=== PATIENT | female | born 1940 | race Caucasian/White ===

== ENCOUNTER 2017-01-10 10:45 | Inpatient (IN) | payer OTHER, BC ==
--- NOTE | 2017-01-10 11:31 | EDPHY ---
H & P Stated Complaint: Not feeling well since she got here from lower altitude;vom x 1 this am Time Seen by Provider: 01/10/17 11:23 HPI/ROS: CHIEF COMPLAINT: Nausea, vomiting, rash HISTORY OF PRESENT ILLNESS: This patient is a 76 y/o female complaining nausea, fatigue, and a rash on her right arm onset four days ago. Onset a rash on her right upper extremity 4 days ago, associated with fatigue and malaise. The rash has gradually increased and now extends from her shoulder down to her wrist. The rash is non painful and it does not itch. Yesterday, she began feeling nauseous and vomited once this morning. Associated with loose stool, but no diarrhea. Currently, she has a moderate headache and feels fatigued. She denies fever. No chest pain, abdominal pain, urinary complaints, or other associated symptoms. REVIEW OF SYSTEMS: A 10 point review of systems was performed and is negative with the exception of the elements mentioned in the history of present illness. - Personal History Current Tetanus Diphtheria and Acellular Pertussis (TDAP): Yes - Medical/Surgical History PMH: Hypertension. Other PMH: HTN - Social History Smoking Status: Never smoked Additional Social History: Visiting from [place]. . Retired. - Physical Exam Exam: General Appearance: Alert, pleasant Eyes: Pupils equal and round, no conjunctival pallor or injection. Blepharospasm right eyelid, ongoing for 10 years. ENT, Mouth: Mucous membranes moist Neck: Normal inspection Respiratory: Lungs are clear to auscultation Cardiovascular: Regular rate and rhythm Gastrointestinal: Abdomen is soft and non-tender Neurological: Alert, oriented x3, cranial nerves II through XII intact, motor 5 /5, sensory grossly intact Skin: Multiple vesicles on an erythematous base which extend from right posterior shoulder in a linear aspect down to the volar aspect of wrist. Warm and dry. Vascular: 2+ radial pulses Extremities: Nontender, no swelling Psychiatric: Mood and affect normal Constitutional: Initial Vital Signs Temperature (C) 36.6 C 01/10/17 10:46 Heart Rate 63 01/10/17 10:46 Respiratory Rate 18 01/10/17 10:46 Blood Pressure 144/75 H 01/10/17 10:46 O2 Sat (%) 97 01/10/17 10:46 O2 Delivery Mode Room Air Allergies/Adverse Reactions: prochlorperazine [From Compazine] Allergy (Intermediate, Verified 01/10/17 10:56 ) dystonia Home Medications: Medication Instructions Recorded Calcium Carbonate [Oyster Shell 500 mg PO DAILY 01/10/17 Calcium 500 mg (*)] Glucosamine Sulfate [Glucosamine 500 mg PO DAILY 01/10/17 Sulfate 500 MG (*)] Herbals/Supplements -Info Only 1 ea PO DAILY 01/10/17 Hydrochlorothiazide [HCTZ (*)] 25 mg PO DAILY 01/10/17 Lisinopril [Zestril 40 mg (*)] 40 mg PO DAILY 01/10/17 Propranolol HCl [Inderal LA] 160 mg PO DAILY 01/10/17 Sertraline HCl [Zoloft 25mg (*)] 25 mg PO DAILY 01/10/17 Valacyclovir HCl [Valtrex] 1,000 mg PO TID #21 tab 01/10/17 amLODIPine BESYLATE [Norvasc 10 mg 10 mg PO DAILY 01/10/17 (*)] Medical Decision Making ED Course/Re-evaluation: 76 y/o female presents with shingles, fatigue and recent onset nausea and vomiting. IV established. Plan for labs including CBC, BMP. Plan to administer 4mg IV Zofran and 1L IV NS for dehydration. 12:30 The patient declined Zofran, as she is worried about a possible dystonic reaction. Laboratory studies show hyponatremia, most likely secondary to dehydration, combined with regular use of hydrochlorothiazide. In regards to the headache, this is most likely secondary to dehydration and hyponatremia. I do not suspect that she has disseminated herpes zoster or meningitis. She states she has had a prior episode of hyponatremia related to dehydration. There are no prior laboratory tests for comparison. She does not feel comfortable going home. Plan to admit for further management. 12:40 Consulted with hospitalist service. Dr. Vela accepts admission for hyponatremia. Valtrex 1000 mg orally given. Differential Diagnosis: Differential diagnosis includes though is not limited to cellulitis, abscess, disseminated herpes zoster, SIADH. - Data Points Laboratory Results: Laboratory Results 01/10/17 11:53 01/10/17 11:53 Medications Given: Acetaminophen (Tylenol) 650 mg PO Q4HRS PRN PRN Reason: Pain, Mild/Fever, Can Take PO Stop: 07/09/17 14:38 Last Admin: 01/11/17 02:27 Dose: 650 mg Sodium Chloride (Ns) 1,000 mls @ 100 mls/hr IV CONT LUCIAN Stop: 07/09/17 15:44 Last Admin: 01/11/17 02:31 Dose: 1,000 mls Valacyclovir HCl (Valtrex) 1,000 mg PO TID LUCIAN Stop: 02/09/17 21:59 Last Admin: 01/10/17 21:29 Dose: 1,000 mg Discontinued Medications Sodium Chloride (Ns) 1,000 mls @ 0 mls/hr IV EDNOW ONE; Wide Open PRN Reason: Protocol Stop: 01/10/17 11:40 Last Admin: 01/10/17 11:52 Dose: 1,000 mls Ondansetron HCl (Zofran) 4 mg IVP EDNOW ONE Stop: 01/10/17 11:40 Last Admin: 01/10/17 11:53 Dose: Not Given Potassium Chloride (Klor-Con) 40 meq PO ONCE ONE Stop: 01/10/17 15:35 Last Admin: 01/10/17 16:20 Dose: 40 meq Potassium Chloride (Klor-Con) 60 meq PO ONCE ONE Stop: 01/11/17 01:34 Last Admin: 01/11/17 02:23 Dose: 60 meq Valacyclovir HCl (Valtrex) 1,000 mg PO EDNOW ONE Stop: 01/10/17 12:45 Last Admin: 01/10/17 13:30 Dose: 1,000 mg Departure - Departure Disposition: [facility] Acute Clinical Impression: Hyponatremia Shingles Qualifiers: Herpes zoster complications: without complications Qualified Code(s): B02.9 - Zoster without complications Condition: Fair Report Scribed for: Shandra Pichardo Report Scribed by: Ariana Kwok Date of Report: 01/10/17 Time of Report: 11:35 Physician Review and Approval Statement: 01/10/17 11:35 Portions of this note were transcribed by a hospitalist medical director. I personally performed a history, physical exam, medical decision making, and confirmed accuracy of information the transcribed note.
[2017-01-10] MEDS ORDERED: ONDANSETRON 4 MG/2 ML VIAL IVP ONE (11:39)
[2017-01-10] MEDS ORDERED: NS 1,000 ML IV ONE (11:39)
[2017-01-10 12:02] LABS: PLATELET COUNT 197 10^3/uL (150-400)
[2017-01-10] MEDS ORDERED: valACYclovir 500 MG TAB PO ONE (12:44)
[2017-01-10] MEDS ORDERED: ONDANSETRON 4 MG/2 ML VIAL IVP PRN (14:39)
[2017-01-10] MEDS ORDERED: ACETAMINOPHEN 325 MG TAB PO PRN (14:39)
[2017-01-10] MEDS ORDERED: ONDANSETRON DISINTEGRATING 4 MG TAB PO PRN (14:39)
[2017-01-10] MEDS ORDERED: POTASSIUM CL 20 MEQ TAB PO ONE (15:34)
--- NOTE | 2017-01-10 16:07 | GHP ---
[f rep st] HISTORY AND PHYSICAL DATE OF ADMISSION: 01/10/2017 CHIEF COMPLAINT: Vomiting. HISTORY OF PRESENT ILLNESS: This is a 76-year-old female who is visiting from [place]. She notice d a rash a few days prior to presentation on her right arm. It does not hurt. It is also not prurit ic. It has slowly gotten worse. Over the past few days, she has been maintaining her hydration, tho ugh she has been going to altitude. She has had loose stools but no diarrhea. Today, she had an epi sode of emesis associated with a headache. Thus, she presented to the emergency department. She has never had shingles before. She is not immunosuppressed. No diabetes, no steroids. She has not had the Zostavax vaccine. She tells me that her headache has resolved after eating a little food and an ving a short nap. PAST MEDICAL/SURGICAL HISTORY: Hypertension. MEDICATIONS: Please see medication reconciliation. ALLERGIES: Prochlorperazine. SOCIAL HISTORY: She is from [place]. She is and retired. FAMILY HISTORY: Reviewed and noncontributory. REVIEW OF SYSTEMS: 10-point review of systems is conducted and is negative except per HPI. PHYSICAL EXAM: VITAL SIGNS: Blood pressure 154/81, heart rate 65, respiration rate 16, saturating 9 5% on room air. Temperature 36.6. GENERAL: The patient is a very pleasant female who is resting co mfortably, in no acute distress. HEENT: Normocephalic, atraumatic. CARDIOVASCULAR: Regular rate a nd rhythm. No murmurs, rubs, or gallops. PULMONARY: Lungs clear to auscultation bilaterally. ABDO MEN: Soft, nontender, nondistended. SKIN: A vesicular rash, erythematous base, on her right arm. : Shows no Brasher. NEUROLOGIC: Shows her to be alert and oriented x3. She is moving all extremit ies. PSYCHIATRIC: Normal mood and affect. LABS: Sodium 124, potassium 3.0, chloride 88, creatinine 0.7, glucose 125, calcium 9. Her CBC is re latively unremarkable. DATA: I reviewed her chart. IMPRESSION AND PLAN: This is a 76-year-old female who presents with a rash, hyponatremia. 1. Zoster: We will start her on Valtrex. Seems to be in about the C5 through C7 distribution. 2. Hyponatremia: She is on hydrochlorothiazide. Also probably slightly hypovolemic. Her sodium di d not come up with normal saline. I will continue it slowly and check another basic metabolic panel at 10 p.m. tonight. 3. Hypokalemia: Likely due to emesis. Will replete orally as she is now taking p.o. 4. Headache: This has resolved. 5. Code status is full. 6. Admission status is observation. /[id number]/MODL
[2017-01-10] MEDS: NS 1,000 ML IV SCH (16:22)
[2017-01-10] MEDS: valACYclovir 500 MG TAB PO SCH (21:29)
[2017-01-11] MEDS ORDERED: POTASSIUM CL 20 MEQ TAB PO ONE (01:33)
[2017-01-11] MEDS ORDERED: POTASSIUM CL 20 MEQ TAB ONE (02:13)
[2017-01-11] MEDS: NS 1,000 ML IV SCH (02:31)
[2017-01-11 04:24] LABS: PLATELET COUNT 203 10^3/uL (150-400)
[2017-01-11] MEDS: valACYclovir 500 MG TAB PO SCH ×3 (08:19→21:10)
[2017-01-11] MEDS: ENOXAPARIN 40 MG/0.4 ML SYR SC SCH (08:20)
[2017-01-11] MEDS: LISINOPRIL 40 MG TAB PO SCH (08:20)
[2017-01-11] MEDS ORDERED: PROPRANOLOL PO SCH (09:00)
[2017-01-11] MEDS ORDERED: PROPRANOLOL HCL 160 MG PO SCH (09:00)
[2017-01-11] MEDS ORDERED: LISINOPRIL 40 MG TAB PO SCH (09:00)
[2017-01-11] MEDS ORDERED: PROPRANOLOL SR 80 MG CAP PO SCH (09:00)
[2017-01-11] MEDS ORDERED: BISMUTH SUBSALICYLATE 262 MG CHEWABLE TAB PO PRN (14:34)
--- NOTE | 2017-01-11 14:38 | HOSPPROG ---
Hospitalist Progress Note Assessment/Plan: # hypoNa - multifactorial, hctz, SSRI, possibly SIADH - fluid restrict, Na tabs - check urine studies, TSH, am cortisol # hypoK - replete # zoster - valtrex # htn - norvasc, lisino; follow # status - inpatient d/t severe hypoNa Subjective: feels poorly, belching, flatus Objective: Vital Signs Temp Pulse Resp BP Pulse Ox 36.5 C 61 20 160/79 H 95 01/11/17 07:15 01/11/17 07:15 01/11/17 07:15 01/11/17 07:15 01/11/17 07:15 Laboratory Results 01/11/17 04:15 01/11/17 12:43 01/10/17 01/11/17 01/12/17 05:59 05:59 05:59 Intake Total 1100 685 Balance 1100 685 - Physical Exam Constitutional: no apparent distress, appears nourished Cardiovascular: regular rate and rhythym, no murmur, rub, or gallop Respiratory: no respiratory distress, no rales or rhonchi, clear to auscultation Gastrointestinal: normoactive bowel sounds, soft, non-tender abdomen, no palpable masses ICD10 Worksheet Patient Problems: Problems Problem Status Onset Shingles Acute Hyponatremia Acute
--- NOTE | 2017-01-11 14:49 | ASMTCMCOM ---
CM Note CM Note Notes: Spoke w/RN, anticipate pt will dc home w/support of when medically stable. CM available for any changes. Date Signed: 01/11/2017 02:48 PM Electronically Signed By:Isamar Peterson RN
--- NOTE | 2017-01-11 15:10 | PDMN ---
Medical Necessity Medical necessity: Patient meets INPT criteria per physician note and MCG Systemic or Infectious Condition GRG (severe hyponatremia/Na+ 123-125 since admission/ multifactorial: HCTZ, SSRI, poss SIADH ; initial hypokalemia resolved ; on Valtrex for herpes zoster, HTN; LOS will be > 2 midnights for fluid restriction, Na tabs, check urine studies and cortisol level.)
[2017-01-11] MEDS: SODIUM CHLORIDE 1,000 MG TAB PO SCH (17:44)
[2017-01-11] MEDS: SIMETHICONE 80 MG TAB CHEW PO SCH ×2 (17:44→21:10)
[2017-01-12] MEDS: ENOXAPARIN 40 MG/0.4 ML SYR SC SCH (08:42)
[2017-01-12] MEDS: SODIUM CHLORIDE 1,000 MG TAB PO SCH ×3 (08:43→17:59)
[2017-01-12] MEDS: LISINOPRIL 40 MG TAB PO SCH (08:44)
[2017-01-12] MEDS: valACYclovir 500 MG TAB PO SCH ×3 (08:45→22:08)
[2017-01-12] MEDS: SIMETHICONE 80 MG TAB CHEW PO SCH ×4 (08:46→22:07)
--- NOTE | 2017-01-12 09:05 | HOSPPROG ---
Hospitalist Progress Note Assessment/Plan: # hypoNa - multifactorial, hctz, SSRI, possibly SIADH - fluid restrict, Na tabs - recheck Na at noon # hypoK - repleted # zoster - valtrex # htn - norvasc, lisino; propranolol - start clonidine today Subjective: feels stronger today Objective: Vital Signs Temp Pulse Resp BP Pulse Ox 36.5 C 58 L 20 157/78 H 94 01/12/17 07:08 01/12/17 07:08 01/12/17 07:08 01/12/17 07:08 01/12/17 07:08 Laboratory Results 01/12/17 04:22 01/11/17 01/12/17 01/13/17 05:59 05:59 05:59 Intake Total 1500 Balance 1500 high risk with severe hypoNa - Physical Exam Constitutional: no apparent distress, appears nourished Cardiovascular: regular rate and rhythym, no murmur, rub, or gallop Respiratory: no respiratory distress, no rales or rhonchi, clear to auscultation Gastrointestinal: normoactive bowel sounds, soft, non-tender abdomen, no palpable masses ICD10 Worksheet Patient Problems: Problems Problem Status Onset Shingles Acute Hyponatremia Acute
[2017-01-12] MEDS: PROPRANOLOL PO SCH (10:17)
--- NOTE | 2017-01-12 14:11 | PDCONSULT ---
Patient Care Technician Instructor Note: Assessment/Plan: Hyponatremia: unlikely to be hypovolemic hyponatremia as pt did not respond to IVFs given and currently she appears euvolemic. She could have SIADH although her urine studies may have been skewed by HCTZ she was taking at home. TSH and am cortisol wnl. - Will continue salt tabs. - Will further fluid restrict to 1000ml. - Will recheck urine studies tomorrow am. - Will continue to monitor sodium q8h and adjust fluid and salt as needed. - Goal is to raise sodium by no more than 6 over a 24hr period, so no higher than 129 by tomorrow am. HTN: continue current meds, holding HCTZ in setting of above hyponatremia. Thank you for the interesting consult. Nephrology will continue to follow, please call if you have any additional questions or concerns. H & P Stated Complaint: Not feeling well since she got [place] from [place] altitude;vom x 1 this am Time Seen by Provider: 01/10/17 11:23 HPI/ROS: Ms. Burgos is a 76 yo F with h/o HTN who was admitted on 01/10/17 with complaints of nausea and rash. She was found to have shingles on R arm. She is visiting from [place], arrived on Sunday last week. She states that the rash first appeared on Sunday, got worse in the next 24 hours. She then states that she started to have nausea on Sunday, and on Sunday she vomiting once, prompting her to come to ER. Her sodium on presentation was 124 , was given NS but sodium remained 123-125. Yesterday, NS stopped and she was started on 1500ml fluid restriction and 1g salt tab TID. This am, her sodium was still 123, and at noon it was down to 120, prompting consult. Pt states that she once had hyponatremia during a hospitalization years ago when she was dehydrated and improved with fluids, sodiums have reportedly been normal before and since then. She follows a low salt diet at home. She was taking HCTZ at home for her HTN, states she has been on it since last year, had been on and off it in the past. She denies any dizziness, confusion, N/V currently. ROS: Positive per HPI, rest of 10-point ROS negative Source: Patient - Personal History Current Tetanus Diphtheria and Acellular Pertussis (TDAP): Yes - Medical/Surgical History Hx Renal Disease: Yes Other PMH: HTN - Family History Significant Family History: No pertinent family hx - Social History Smoking Status: Never smoked - Physical Exam Exam: General: alert and oriented, no acute distress Eyes; EOMI, PERRL OP: Clear, MMM Neck: supple, no thyromegaly CV: RRR, no peripheral edema, +2 dorsalis pedis pulses Resp: CTA bilat, nonlabored respirations Abd; Soft, NT/ND Neuro: CN II-XII grossly intact, no asterixis Psych: cooperative, appropriate mood and affect Skin: rash noted on R arm Constitutional: Initial Vital Signs Temperature (C) 36.6 C 01/10/17 10:46 Heart Rate 63 01/10/17 10:46 Respiratory Rate 18 01/10/17 10:46 Blood Pressure 144/75 H 01/10/17 10:46 O2 Sat (%) 97 01/10/17 10:46 O2 Delivery Mode Room Air Allergies/Adverse Reactions: prochlorperazine [From Compazine] Allergy (Intermediate, Verified 01/10/17 10:56 ) dystonia Home Medications: Medication Instructions Recorded Calcium Carbonate [Oyster Shell 500 mg PO DAILY 01/10/17 Calcium 500 mg (*)] Glucosamine Sulfate [Glucosamine 500 mg PO DAILY 01/10/17 Sulfate 500 MG (*)] Herbals/Supplements -Info Only 1 ea PO DAILY 01/10/17 Hydrochlorothiazide [HCTZ (*)] 25 mg PO DAILY 01/10/17 Lisinopril [Zestril 40 mg (*)] 40 mg PO DAILY 01/10/17 Propranolol HCl [Inderal LA] 160 mg PO DAILY 01/10/17 Sertraline HCl [Zoloft 25mg (*)] 25 mg PO DAILY 01/10/17 Valacyclovir HCl [Valtrex] 1,000 mg PO TID #21 tab 01/10/17 amLODIPine BESYLATE [Norvasc 10 mg 10 mg PO DAILY 01/10/17 (*)] Lab and Imaging 01/11/17 04:15 01/12/17 12:00 WBC 4.37 10^3/uL (3.80-9.50) 01/11/17 04:15 RBC 4.35 10^6/uL (4.18-5.33) 01/11/17 04:15 Hgb 13.2 g/dL (12.6-16.3) 01/11/17 04:15 Hct 35.6 % (38.0-47.0) L 01/11/17 04:15 MCV 81.8 fL (81.5-99.8) 01/11/17 04:15 MCH 30.3 pg (27.9-34.1) 01/11/17 04:15 MCHC 37.1 g/dL (32.4-36.7) H 01/11/17 04:15 RDW 12.1 % (11.5-15.2) 01/11/17 04:15 Plt Count 203 10^3/uL (150-400) 01/11/17 04:15 MPV 9.4 fL (8.7-11.7) 01/11/17 04:15 Neut % (Auto) 67.7 % (39.3-74.2) 01/11/17 04:15 Lymph % (Auto) 16.0 % (15.0-45.0) 01/11/17 04:15 Lamar % (Auto) 14.0 % (4.5-13.0) H 01/11/17 04:15 Eos % (Auto) 1.4 % (0.6-7.6) 01/11/17 04:15 Baso % (Auto) 0.7 % (0.3-1.7) 01/11/17 04:15 Nucleat RBC Rel Count 0.0 % (0.0-0.2) 01/11/17 04:15 Absolute Neuts (auto) 2.96 10^3/uL (1.70-6.50) 01/11/17 04:15 Absolute Lymphs (auto) 0.70 10^3/uL (1.00-3.00) L 01/11/17 04:15 Absolute Monos (auto) 0.61 10^3/uL (0.30-0.80) 01/11/17 04:15 Absolute Eos (auto) 0.06 10^3/uL (0.03-0.40) 01/11/17 04:15 Absolute Basos (auto) 0.03 10^3/uL (0.02-0.10) 01/11/17 04:15 Absolute Nucleated RBC 0.00 10^3/uL (0-0.01) 01/11/17 04:15 Immature Gran % 0.2 % (0.0-1.1) 01/11/17 04:15 Immature Gran # 0.01 10^3/uL (0.00-0.10) 01/11/17 04:15 Sodium 120 mEq/L (134-144) L 01/12/17 12:00 Potassium 3.5 mEq/L (3.5-5.2) 01/12/17 04:22 Chloride 88 mEq/L (97-110) L 01/12/17 04:22 Carbon Dioxide 23 mEq/l (22-31) 01/12/17 04:22 Anion Gap 12 mEq/L (8-16) 01/12/17 04:22 BUN 11 mg/dL (7-23) 01/12/17 04:22 Creatinine 0.8 mg/dL (0.6-1.0) 01/12/17 04:22 Estimated GFR > 60 01/12/17 04:22 Glucose 89 mg/dL (70-100) 01/12/17 04:22 Calcium 8.8 mg/dL (8.5-10.4) 01/12/17 04:22 TSH 1.800 uIU/mL (0.465-4.680) 01/12/17 04:22 Cortisol AM Sample 19.4 ug/dL (4.5-22.7) 01/12/17 04:22 Urine Osmolality 417 mosmo/kg (300-900) 01/11/17 14:20 Ur Random Sodium 132 mEq/L (30-90) H 01/11/17 14:20
[2017-01-13] MEDS: SODIUM CHLORIDE 1,000 MG TAB PO SCH ×3 (08:14→18:39)
[2017-01-13] MEDS: SIMETHICONE 80 MG TAB CHEW PO SCH ×5 (08:14→22:04)
[2017-01-13] MEDS: valACYclovir 500 MG TAB PO SCH ×3 (08:15→22:04)
[2017-01-13] MEDS: ENOXAPARIN 40 MG/0.4 ML SYR SC SCH (08:15)
[2017-01-13] MEDS: LISINOPRIL 40 MG TAB PO SCH ×2 (08:15→08:22)
[2017-01-13] MEDS: PROPRANOLOL PO SCH (08:22)
--- NOTE | 2017-01-13 09:26 | HOSPPROG ---
Hospitalist Progress Note Assessment/Plan: * Hyponatremia -improving slowly on salt tabs + fluid restrict -DC HCTZ -holding Zoloft * Herpes Zoster -Valtrex * ARF -creatinine up to 1.3 -await nephrology input * HTN -Norvasc, lisinopril, propranolol -clonidine added Subjective: NO complaints Objective: Vital Signs Temp Pulse Resp BP Pulse Ox 36.6 C 57 L 20 117/60 96 01/13/17 08:00 01/13/17 08:00 01/13/17 08:00 01/13/17 08:00 01/13/17 08:00 Laboratory Results 01/13/17 04:12 01/12/17 01/13/17 01/14/17 05:59 05:59 05:59 Intake Total 1500 1000 Balance 1500 1000 - Physical Exam Constitutional: no apparent distress, appears nourished, not in pain Cardiovascular: regular rate and rhythym, no murmur, rub, or gallop Respiratory: no respiratory distress, no rales or rhonchi, clear to auscultation Gastrointestinal: normoactive bowel sounds, soft, non-tender abdomen, no palpable masses Skin: rash (vesicular lesions dried) Neurologic: AAOx3, sensation intact bilaterally Psychiatric: interacting appropriately, not anxious, not encephalopathic, thought process linear ICD10 Worksheet Patient Problems: Problems Problem Status Onset Hyponatremia Acute Shingles Acute
--- NOTE | 2017-01-13 10:18 | ASMTCMCOM ---
CM Note CM Note Notes: Spoke w/MD, anticipate pt will dc w/support of family when medically stable. CM available for any changes. Date Signed: 01/13/2017 10:17 AM Electronically Signed By:Isamar Peterson RN
--- NOTE | 2017-01-13 16:05 | SOAPPROG ---
SOAP Progress Note Assessment/Plan: Assessment: 1. Hyponatremia: -Patient has improved with fluid restriction, slat tabs, and cessation of HCTZ -Initially urine studies were supportive of this approach, although low yield with recent use of HCTZ causing obligate urinary sodium losses -Today urine studies show Na < 5, thus renal conservation which is more typical of hypovolemia -Also she has had a rise in BUN/Cr -Will give back 1L NS and lift fluid restriction to 1500ml, she should continue to eat ad amanda -TSH and am cortisol wnl. -Hold salt tabs. -Will recheck urine studies tomorrow am. -Will continue to monitor sodium q8h and adjust as needed. -Goal is to raise sodium by no more than 6 over a 24hr period 2. ERIKA - -Labs supportive of a pre-renal ERIKA -Giving back 1L NS and allowing PO intake -Hold Lisinopril if further decline in function despite IVF 3. HTN: -Continue current meds, holding HCTZ in setting of above hyponatremia. -Hold Lisinopril if creat climbs further despite IVF, BP well controlled but consider alternate if needed Plan: 01/13/17 16:02 01/13/17 16:07 Subjective: Patient denies N/V. She feels dry and thirsty. Has a good appetite. Objective: Vital Signs Temp Pulse Resp BP Pulse Ox 36.7 C 65 18 117/53 L 94 01/13/17 15:58 01/13/17 15:58 01/13/17 15:58 01/13/17 15:58 01/13/17 15:58 Laboratory Results 01/13/17 13:34 01/12/17 01/13/17 01/14/17 05:59 05:59 05:59 Intake Total 1500 1000 Balance 1500 1000 Physical Exam - Physical Exam General Appearance: WD/WN, no apparent distress Respiratory: lungs clear Cardiac/Chest: regular rate, rhythm Abdomen: non-tender, soft Skin: Zoster-like rash (Shingles on R arm) Extremities: No swelling ICD10 Worksheet Patient Problems: Problems Problem Status Onset Hyponatremia Acute Shingles Acute
[2017-01-13] MEDS ORDERED: NS 1,000 ML IV SCH (16:15)
[2017-01-13 22:56] VITALS: RESP 16
[2017-01-14 07:48] VITALS: BP 126/67; PULSE 62; TEMP 97.7; O2SAT 94
[2017-01-14] MEDS: valACYclovir 500 MG TAB PO SCH (08:48)
[2017-01-14] MEDS: LISINOPRIL 40 MG TAB PO SCH (08:49)
[2017-01-14] MEDS: ENOXAPARIN 40 MG/0.4 ML SYR SC SCH (08:49)
[2017-01-14] MEDS: PROPRANOLOL PO SCH (08:50)
[2017-01-14] MEDS: SODIUM CHLORIDE 1,000 MG TAB PO SCH (08:55)
[2017-01-14] MEDS: SIMETHICONE 80 MG TAB CHEW PO SCH ×2 (09:48→13:19)
--- NOTE | 2017-01-14 09:53 | SOAPPROG ---
SOAP Progress Note Assessment/Plan: Assessment: 1. Hyponatremia: -Patient hasimproved with fluid restriction, salt tabs, and cessation of HCTZ -Initially urine studies were supportive of this approach, although low yield with recent use of HCTZ causing obligate urinary sodium losses -Repeat urine studies show Na < 5, thus renal conservation which is more typical of hypovolemia -Also she had a rise in BUN/Cr -Yesterday gave back 1L NS and lifted fluid restriction to 1500ml, -Na and BUN/Cr improved today -She should continue to eat ad amanda -TSH and am cortisol wnl. -Holding salt tabs. -Rechecking urine studies tomorrow -Na normal today, can check labs daily, ok to discharge when otherwise medically stable as long as she can get lab f/u within a few days 2. ERIKA - -Labs supportive of a pre-renal ERIKA -Giave back 1L NS and allowing PO intake 3. HTN: -Continue current meds, holding HCTZ in setting of above hyponatremia. -Would hold HCTZ into outpt setting as well Plan: 01/14/17 09:50 Subjective: Feels well. Ate full breafast. No complaints. Objective: Vital Signs Temp Pulse Resp BP Pulse Ox 36.5 C 62 16 126/67 H 94 01/14/17 07:45 01/14/17 07:45 01/14/17 07:45 01/14/17 07:45 01/14/17 07:45 Laboratory Results 01/14/17 04:15 01/13/17 01/14/17 01/15/17 05:59 05:59 05:59 Intake Total 1000 200 Output Total 200 Balance 1000 0 Physical Exam - Physical Exam General Appearance: WD/WN, no apparent distress Respiratory: lungs clear, normal breath sounds Cardiac/Chest: regular rate, rhythm Abdomen: non-tender, soft Skin: Zoster-like rash (R arm) Extremities: No swelling ICD10 Worksheet Patient Problems: Problems Problem Status Onset Hyponatremia Acute Shingles Acute
--- NOTE | 2017-01-14 14:12 | ASDISCHSUM ---
Discharge Information Plan Status:Home with No Needs Medically Cleared to Leave:01/14/2017 Discharge Date:01/14/2017 CM D/C Disposition:Home, Routine, Self-Care ADT D/C Disposition:Home, Routine, Self-Care Projected Discharge Date:01/14/2017 Transportation at D/C:Family Discharge Delay Reason: Follow-Up Date:01/14/2017 Discharge Slot: Final Diagnosis: Placement Information Patient Contact Information Contact Name:BENJAMÍN Relationship:Kenneth Address: Work Phone: City: [facility] Phone: State/Zip Code: Email: Financial Information Financial Class: Primary Plan Desc:MEDICARE INPATIENT Primary Plan Number:[id number] Secondary Plan Desc: OUT OF STATE [facility] Secondary Plan Number:[id number] Assessment Information [facility] CM Progress Note CM Note CM Note Notes: Spoke w/ISHAN, anticipate pt will dc home w/support of when medically stable. CM available for any changes. Date Signed: 01/11/2017 02:48 PM Electronically Signed By:Isamar Peterson RN [facility] CM Progress Note CM Note CM Note Notes: Pawan w/, anticipate pt will dc w/support of family when medically stable. CM available for any changes. Date Signed: 01/13/2017 10:17 AM Electronically Signed By:Isamar Peterson RN Intervention Information Intervention Type:*RACHEL-Signed Date of Service:01/11/2017 10:23 AM Patient Type:Observation Staff Member:Mercy Paez Hours: Discipline: Severity: Comment:
--- NOTE | 2017-01-14 14:12 | ASDISCHSUM ---
Discharge Information Plan Status:Home with No Needs Medically Cleared to Leave:01/14/2017 Discharge Date:01/14/2017 CM D/C Disposition:Home, Routine, Self-Care ADT D/C Disposition:Home, Routine, Self-Care Projected Discharge Date:01/14/2017 Transportation at D/C:Family Discharge Delay Reason: Follow-Up Date:01/14/2017 Discharge Slot: Final Diagnosis: Placement Information Patient Contact Information Contact Name:BENJAMÍN Relationship:Kenneth Address: Work Phone: City: [facility] Phone: State/Zip Code: Email: Financial Information Financial Class: Primary Plan Desc:MEDICARE INPATIENT Primary Plan Number:[id number] Secondary Plan Desc: OUT OF STATE [facility] Secondary Plan Number:[id number] Assessment Information [facility] CM Progress Note CM Note CM Note Notes: Spoke w/ISHAN, anticipate pt will dc home w/support of when medically stable. CM available for any changes. Date Signed: 01/11/2017 02:48 PM Electronically Signed By:Isamar Peterson RN [facility] CM Progress Note CM Note CM Note Notes: Pawan w/, anticipate pt will dc w/support of family when medically stable. CM available for any changes. Date Signed: 01/13/2017 10:17 AM Electronically Signed By:Isamar Peterson RN Intervention Information Intervention Type:*RACHEL-Signed Date of Service:01/11/2017 10:23 AM Patient Type:Observation Staff Member:Mercy Paez Hours: Discipline: Severity: Comment:
--- NOTE | 2017-01-14 14:12 | ASDISCHSUM ---
Discharge Information Plan Status:Home with No Needs Medically Cleared to Leave:01/14/2017 Discharge Date:01/14/2017 CM D/C Disposition:Home, Routine, Self-Care ADT D/C Disposition:Home, Routine, Self-Care Projected Discharge Date:01/14/2017 Transportation at D/C:Family Discharge Delay Reason: Follow-Up Date:01/14/2017 Discharge Slot: Final Diagnosis: Placement Information Patient Contact Information Contact Name:BENJAMÍN Relationship:Kenneth Address: Work Phone: City: [facility] [place] Phone: State/Zip Code: Email: Financial Information Financial Class: Primary Plan Desc:MEDICARE INPATIENT Primary Plan Number:[id number] Secondary Plan Desc: OUT OF STATE [facility] Secondary Plan Number:[id number] Assessment Information [facility] CM Progress Note CM Note CM Note Notes: Spoke w/ISHAN, anticipate pt will dc home w/support of when medically stable. CM available for any changes. Date Signed: 01/11/2017 02:48 PM Electronically Signed By:Isamar Peterson RN [facility] CM Progress Note CM Note CM Note Notes: Pawan w/, anticipate pt will dc w/support of family when medically stable. CM available for any changes. Date Signed: 01/13/2017 10:17 AM Electronically Signed By:Isamar Peterson RN Intervention Information Intervention Type:*RACHEL-Signed Date of Service:01/11/2017 10:23 AM Patient Type:Observation Staff Member:Mercy Paez Hours: Discipline: Severity: Comment:
--- NOTE | 2017-01-14 20:38 | GDS ---
[f rep st] DISCHARGE SUMMARY DISCHARGE DIAGNOSES: 1. Hyponatremia due to hydrochlorothiazide. 2. Herpes zoster. 3. Hypertension. HISTORY: The patient is a 76-year-old female visiting her son from [place]. She was about to fly home but was not feeling well, so came to the emergency room for evaluation and was found to have sig nificant hyponatremia. This is likely due to her hydrochlorothiazide. She was seen here in consulta tion with Nephrology and we very slowly corrected her sodium back up to normal. She is advised to ne bk take hydrochlorothiazide again and put it on her allergy list. We are also holding her Zoloft an d the decision can be made in the future whether or not to attempt a retrial of SSRI while closely mo nitoring sodium levels. She also has a significant outbreak of herpes zoster on her right arm. She was initiated on Valtrex. This is coming along nicely. With the discontinuation of hydrochlorothiazide, she did have some elevated blood pressures throughou t her hospitalization. A low-dose clonidine was added to her usual Norvasc, lisinopril and propranol ol. DISCHARGE MEDICATIONS: Please see computer records for full detailed list. NEW MEDICATIONS: 1. Clonidine 0.1 mg p.o. twice daily. 2. Valtrex 1000 mg p.o. three times daily for 3 more days. 3. DISCONTINUED MEDICATIONS: 1. Zoloft 25 mg p.o. daily. 2. Hydrochlorothiazide 25 mg p.o. daily. The remainder of her medications will continue as they were prior to admission. ADDITIONAL DISCHARGE INSTRUCTIONS: 1. Recheck sodium level in 1 to 2 days prior to traveling back home to [place]. 2. Stop hydrochlorothiazide and please list it as a drug allergy for future use. TIME SPENT: Greater than 30 minutes' time was spent arranging this discharge. Patient seen and exam ined by me on day of discharge. /[id number]/MODL
== END 2017-01-14 14:25 | disposition home or self-care (01) | DRG 641 ==
LOC: F3E 13:40 → OBSVTOIN 01-11 14:28
PROVIDERS: ADMIT Student in an Organized Health Care Education/Training Program; ATTEND Student in an Organized Health Care Education/Training Program
CPT/HCPCS: G0378; J1650